=== PATIENT | female | born 1945 | race Caucasian/White ===

== ENCOUNTER 2020-02-04 08:14 | Day surgery (SDC) | payer MEDICARE, OTHER ==
[~2020-02-04 08:14] MED LIST: Acetaminophen 325 MG Tab PO SCH; Acetaminophen/oxyCODONE 325-5 MG Tab PO PRN; Bisacodyl 5 MG Tab PO PRN; Lactated Ringers 1,000 ML IV SCH; Lidocaine 1%/Sod Bicarbonate in NS 8.4% 1 ML Syringe IDERM PRN; Magnesium Hydroxide 400 MG/5 ML Susp 30 ML Cup PO PRN; Morphine 2 MG/ML SYRINGE IVPUSH PRN; Naloxone 0.4 MG/ML SDV IVPUSH PRN; Ondansetron 4 MG/2 ML SDV IVPUSH PRN; Pregabalin 25 MG Cap PO SCH; Sennosides 8.6 MG Tab PO PRN; Sodium Chloride 0.9% 10 ML Syringe FLUSH PRN; oxyCODONE ER 10 MG TAB.ER PO SCH
--- NOTE | 2020-02-04 08:38 | PCM.PREANE ---
Preanesthetic Assessment - Anesthesia/Transfusion/Family Hx Anesthesia History: Prior Anesthesia Without Reaction Family History of Anesthesia Reaction: No Transfusion History: No Prior Transfusion(s) - Review of Systems General: No Symptoms Pulmonary: No Symptoms Cardiovascular: No Symptoms Gastrointestinal: No Symptoms Neurological: No Symptoms Other: Reports: None - Physical Assessment NPO Status Date: 02/03/20 NPO Status Time: 23:50 ASA Class: 2 Mental Status: Alert & Oriented x3 Dentition: Reports: Normal Dentition Thyro-Mental Finger Breadths: 3 Mouth Opening Finger Breadths: 3 ROM/Head Extension: Full Lungs: Clear to Auscultation, Normal Respiratory Effort Cardiovascular: Regular Rate, Regular Rhythm - Lab Values: Laboratory Last Values MRSA (PCR) Negative 01/22/20 16:12 - Allergies Allergies/Adverse Reactions: Allergies Allergy/AdvReac Type Severity Reaction Status Date / Time cephalexin monohydrate Allergy Rash Verified 02/01/20 14:01 [From Keflex] Penicillins Allergy Rash Verified 02/01/20 14:01 Sulfa (Sulfonamide Allergy Rash Verified 02/01/20 14:01 Antibiotics) - Acknowledgements Anesthesia Type Planned: Spinal Pt an Appropriate Candidate for the Planned Anesthesia: Yes Alternatives and Risks of Anesthesia Discussed w Pt/Guardian: Yes Pt/Guardian Understands and Agrees with Anesthesia Plan: Yes PreAnesthesia Questionnaire Cardiovascular History: Reports: High Cholesterol Respiratory History: Reports: SOB (with exertion) Other Respiratory History: Severe Snoring without apnea Gastrointestinal History: Reports: GERD, Hemorrhoids, Other (See Below) Other Gastrointestinal History: dysphagia, RUQ pain, abnormal LFTs, gastric bypass Genitourinary History: Reports: None FAMILY EDUCATOR History: Reports: None Musculoskeletal History: Reports: Osteoarthritis, Other (See Below) Other Musculoskeletal History: calcaneal spur, back pain, ganglion cyst Neurological History: Reports: Other (See Below) Other Neuro History: numbness and tingling Psychiatric History: Reports: Other (See Below) Other Psychiatric History: sleep disturbance Endocrine/Metabolic History: Reports: Hypothyroidism, Obesity/BMI 30+ Hematologic History: Reports: None Immunologic History: Reports: None Oncologic (Cancer) History: Reports: None Dermatologic History: Reports: Other (See Below) Other Dermatologic History: right scalp sebaceous cyst - Past Surgical History Head Surgeries/Procedures: Reports: None HEENT Surgical History: Reports: Adenoidectomy, Tonsillectomy Cardiovascular Surgical History: Reports: None Respiratory Surgical History: Reports: None GI Surgical History: Reports: Bariatric Procedure, Colonoscopy, EGD Female Surgical History: Reports: Tubal Ligation Male Surgical History: Reports: None Endocrine Surgical History: Reports: Thyroidectomy Neurological Surgical History: Reports: None Musculoskeletal Surgical History: Reports: None Oncologic Surgical History: Reports: None - SUBSTANCE USE Smoking Status *Q: Never Smoker Recreational Drug Use History: No - HOME MEDS Home Medications: Home Meds Levothyroxine Sodium [Synthroid] 75 mcg PO DAILY 11/26/14 [History] Multivitamin [Multi-Vitamin Daily] 1 tab PO DAILY 11/26/14 [History] Pantoprazole Sodium 40 mg PO DAILY 11/26/14 [History] Betamethasone/Clotrimazole [Lotrisone] 1 dose TOP BID PRN 02/01/20 [History] Cholecalciferol (Vitamin D3) [Vitamin D3] 5,000 unit PO DAILY 02/01/20 [History] Glucosam/Chondr/Collagn/Hyalur [Glucosamine & Chondroitin Cap] 1 tab PO BID 02/01/20 [History] Rosuvastatin Calcium 5 mg PO DAILY 02/01/20 [History] - CURRENT (IN HOUSE) MEDS Current Meds: Current Medications Acetaminophen (Tylenol) 975 mg PO ONETIME DEAND[facility] Stop: 02/04/20 12:00 Last Admin: 02/04/20 08:27 Dose: 975 mg Documented by: Bisacodyl (Dulcolax) 5 mg PO DAILY PRN PRN Reason: Constipation Morphine Sulfate 8 mg/Epinephrine HCl 0.3 mg/Cefuroxime Sodium 750 mg/Ketorolac Tromethamine 30 mg/Sodium Chloride 7.9 ml 0 mg .XX ASDIRECTED PRN PRN Reason: Pain Cyclobenzaprine HCl (Flexeril) 10 mg PO TID PRN PRN Reason: Spasms Docusate Sodium (Colace) 100 mg PO BID [facility] Famotidine (Pepcid) 20 mg PO Q12H [facility] Lactated Ringer's (Ringers, Lactated) 1,000 mls @ 125 mls/hr IV ASDIRECTED DEANDRE Stop: 02/04/20 23:00 Cefazolin Sodium/Dextrose 2 gm (/ Premix) 50 mls @ 100 mls/hr IV Q8H [facility] Stop: 02/04/20 22:59 Ketorolac Tromethamine (Toradol) 15 mg IVPUSH Q6H PRN PRN Reason: Pain Lidocaine/Sodium Bicarbonate (Buffered Lidocaine 1% In Ns 8.4%) 0.25 ml IDERM ONETIME PRN PRN Reason: Prior to IV Start Stop: 02/04/20 18:00 Magnesium Hydroxide (Milk Of Magnesia) 30 ml PO BID PRN PRN Reason: Constipation Morphine Sulfate (Morphine) 2 mg IVPUSH Q2H PRN PRN Reason: Breakthrough Pain Naloxone HCl (Narcan) 0.1 mg IVPUSH Q5M PRN PRN Reason: Oversedation Ondansetron HCl (Zofran) 4 mg IVPUSH Q6H PRN PRN Reason: Nausea/Vomiting Oxycodone HCl (Oxycontin) 10 mg PO ONETIME [facility] Stop: 02/04/20 12:00 Oxycodone/Acetaminophen (Percocet 325-5 Mg) 1 - 2 tab PO Q4H PRN PRN Reason: Pain Pregabalin (Lyrica) 50 mg PO ONETIME [facility] Stop: 02/04/20 12:00 Last Admin: 02/04/20 08:27 Dose: 50 mg Documented by: Rivaroxaban (Xarelto) 10 mg PO DAILY [facility] Senna (Senna) 8.6 mg PO BID PRN PRN Reason: Constipation Sodium Chloride (Saline Flush) 10 ml FLUSH ASDIRECTED PRN PRN Reason: Keep Vein Open Stop: 02/04/20 18:00
[2020-02-04] MEDS ORDERED: Lidocaine 1% 4 ML ONE (09:02)
[2020-02-04] MEDS ORDERED: ceFAZolin 1 GM Vial ONE ×2 (09:03→09:52)
[2020-02-04] MEDS ORDERED: Propofol 200 MG/20 ML SDV ONE ×2 (09:03→11:38)
[2020-02-04] MEDS ORDERED: Midazolam 1 MG/ML 2 ML SDV ONE (09:03)
[2020-02-04] MEDS ORDERED: fentaNYL 100 MCG/2 ML SDV ONE (09:04)
[2020-02-04] MEDS ORDERED: Iodine/Sodium Iodide 2% Tincture 30 ML Bottle ONE (09:51)
[2020-02-04] MEDS ORDERED: Bupivacaine 0.25% 10 ML SDV ONE (09:52)
[2020-02-04] MEDS: Vancomycin 1 GM SDV ONE ×3 (11:25→11:53)
[2020-02-04] MEDS ORDERED: Ondansetron 4 MG/2 ML SDV IVPUSH PRN (11:45)
[2020-02-04] MEDS ORDERED: fentaNYL 100 MCG/2 ML SDV IVPUSH PRN (11:45)
[2020-02-04] MEDS: Morphine 8 MG, EPINEPHrine 0.3 MG, Cefuroxime 750 MG, Ketorolac 30 MG, Sodium Chloride ... PRN ×10 (11:52→11:54)
[2020-02-04] MEDS ORDERED: Ondansetron 4 MG/2 ML SDV ONE (12:19)
[2020-02-04] MEDS ORDERED: Ketorolac 30 MG/ML SDV ONE (12:19)
[2020-02-04] MEDS ORDERED: EPINEPHrine 1 MG/ML SDV ONE (12:23)
[2020-02-04] MEDS ORDERED: Ropivacaine 0.5% 5 MG/ML 30 ML SDV ONE (12:23)
--- NOTE | 2020-02-04 12:32 | PCM.POSTAN ---
POST ANESTHESIA ASSESSMENT - MENTAL STATUS Mental Status: Alert, Oriented - VITAL SIGNS Vital Signs: Last Vital Signs Temp 36.1 C 02/04/20 12:26 Pulse 77 02/04/20 12:26 Resp 14 02/04/20 12:26 BP 100/55 L 02/04/20 12:26 Pulse Ox 95 02/04/20 12:26 - RESPIRATORY Respiratory Status: Respiratory Rate WNL, Airway Patent, O2 Saturation Stable - CARDIOVASCULAR CV Status: Pulse Rate WNL, Blood Pressure Stable - GASTROINTESTINAL GI Status: No Symptoms - POST OP HYDRATION Hydration Status: Adequate & Stable
--- NOTE | 2020-02-04 12:51 | PCM.SN.2 ---
- Free Text/Narrative Note: Left selective femoral nerve block at the adductor canal for post-procedure pain control under US guidance requested by Dr. Nunn. Date: 02/04/2020 Time Out: 1232 Start: 1232 End: 1240 Chart reviewed. Consent signed. Questions answered. Appropriate monitors applied. Time out performed. Left mid-shaft femur identified with ultrasound, scanning medially of femur, the femoral artery in the adductor canal visualized, and the femoral nerve located laterally to the artery. The skin was prepped lateral to the ultrasound probe with chlorahexadine times two. The 21ga 4 insulated block needle was inserted under direct ultrasound guidance into the adductor canal. 25mL of 0.5% ropivacaine with 1:200,000 epinephrine was injected circumferentially around the nerve with intermittent negative aspiration noted. Patient tolerated the procedure well. Sterile technique noted along with sterile gloves, mask, and sterile probe cover. See picture on progress note and vital signs on nurses notes. Block completed in PACU. Mio Soliz CRNA
--- NOTE | 2020-02-04 13:00 | PCM48HPAN ---
Post Anesthesia Note - EVALUATION WITHIN 48HRS OF ANESTHETIC Vital Signs in Normal Range: Yes Patient Participated in Evaluation: Yes Respiratory Function Stable: Yes Airway Patent: Yes Cardiovascular Function Stable: Yes Hydration Status Stable: Yes Pain Control Satisfactory: Yes Nausea and Vomiting Control Satisfactory: Yes Mental Status Recovered: Yes Vital Signs: Last Vital Signs Temp 36.1 C 02/04/20 12:26 Pulse 74 02/04/20 12:41 Resp 15 02/04/20 12:41 BP 102/59 L 02/04/20 12:41 Pulse Ox 98 02/04/20 12:41
--- NOTE | 2020-02-04 13:26 | CR ---
Left knee: AP and crosstable lateral views of the left knee were obtained. Comparison: No prior knee exam. Prosthesis is seen within the left knee. Soft tissue air is noted from the surgical procedure. Underlying bony structures are intact. Impression: 1. Satisfactory radiographic appearance of recently placed left knee prosthesis. Diagnostic code #2 This report was dictated in MDT
[2020-02-04] MEDS ORDERED: BETAMETHASONE TOP PRN (14:53)
[2020-02-04] MEDS ORDERED: CLOTRIMAZOLE TOP PRN (14:53)
[2020-02-04] MEDS ORDERED: Cyclobenzaprine 10 MG Tab PO PRN (15:00)
[2020-02-04] MEDS: Ketorolac 15 MG/ML SDV IVPUSH PRN (17:01)
[2020-02-04] MEDS: ceFAZolin 2 GM in Premix Bag 1 BAG IV SCH (17:04)
[2020-02-04] MEDS: Docusate Sodium 100 MG Cap PO SCH (21:25)
[2020-02-04] MEDS: Famotidine 20 MG Tab PO SCH (21:25)
[2020-02-05] MEDS: Ketorolac 15 MG/ML SDV IVPUSH PRN ×2 (01:16→07:42)
[2020-02-05] MEDS: ceFAZolin 2 GM in Premix Bag 1 BAG IV SCH ×2 (01:17→09:10)
[2020-02-05] MEDS ORDERED: Levothyroxine 75 MCG Tab PO SCH (06:00)
[2020-02-05] MEDS ORDERED: Pantoprazole 40 MG Tab.CR PO SCH ×2 (06:00→07:00)
[2020-02-05] MEDS ORDERED: oxyCODONE 5 MG Tab PO PRN (08:05)
--- NOTE | 2020-02-05 08:16 | PCM.SURGPN ---
- General Info Date of Service: 02/05/20 POD#: 1 Functional Status: Reports: Pain Controlled, Tolerating Diet, Ambulating, Urinating, Incentive Spirometry, Other (The pt states she is able to get into and out of bed independently.) - Patient Data Vitals - Most Recent: Last Vital Signs Temp 98.1 F 02/05/20 04:42 Pulse 71 02/05/20 04:42 Resp 16 02/05/20 04:42 BP 99/71 02/05/20 04:42 Pulse Ox 93 L 02/05/20 04:42 Weight - Most Recent: 222 lb I&O - Last 24 Hours: Intake & Output 02/04/20 02/05/20 02/05/20 22:59 06:59 14:59 Intake Total 340 Balance 340 Lab Results Last 24 Hrs: Laboratory Results - last 24 hr 02/05/20 02/05/20 Range/Units 04:30 04:30 WBC 6.28 (3.98-10.04) K/mm3 RBC 4.36 (3.98-5.22) M/mm3 Hgb 12.7 (11.2-15.7) gm/dl Hct 40.2 (34.1-44.9) % MCV 92.2 (79.4-94.8) fl MCH 29.1 (25.6-32.2) pg MCHC 31.6 L (32.2-35.5) g/dl RDW Std Deviation 47.2 H (36.4-46.3) fL Plt Count 213 (182-369) K/mm3 MPV 10.2 (9.4-12.3) fl Sodium 139 (136-145) mEq/L Potassium 3.7 (3.5-5.1) mEq/L Chloride 104 (98-107) mEq/L Carbon Dioxide 27 (21-32) mEq/L Anion Gap 11.7 (5-15) BUN 12 (7-18) mg/dL Creatinine 0.7 (0.55-1.02) mg/dL Est Cr Clr Drug Dosing 68.01 mL/min Estimated GFR (MDRD) > 60 (>60) mL/min BUN/Creatinine Ratio 17.1 (14-18) Glucose 79 L (83-115) mg/dL Calcium 8.4 L (8.5-10.1) mg/dL Total Bilirubin 0.4 (0.2-1.0) mg/dL AST 72 H (15-37) U/L ALT 68 H (14-59) U/L Alkaline Phosphatase 88 (46-116) U/L Total Protein 5.9 L (6.4-8.2) g/dl Albumin 3.0 L (3.4-5.0) g/dl Globulin 2.9 gm/dL Albumin/Globulin Ratio 1.0 (1-2) Med Orders - Current: Current Medications Bisacodyl (Dulcolax) 5 mg PO DAILY PRN PRN Reason: Constipation Cholecalciferol (Vitamin D3) 5,000 unit PO DAILY [facility] Cyclobenzaprine HCl (Flexeril) 10 mg PO TID PRN PRN Reason: Spasms Docusate Sodium (Colace) 100 mg PO BID [facility] Last Admin: 02/04/20 21:25 Dose: 100 mg Documented by: Famotidine (Pepcid) 20 mg PO Q12H [facility] Last Admin: 02/04/20 21:25 Dose: 20 mg Documented by: Cefazolin Sodium/Dextrose 2 gm (/ Premix) 50 mls @ 100 mls/hr IV Q8H [facility] Stop: 02/05/20 09:59 Last Admin: 02/05/20 01:17 Dose: 100 mls/hr Documented by: Levothyroxine Sodium (Levothyroxine) 75 mcg PO ACBREAKFAST [facility] Last Admin: 02/05/20 05:30 Dose: 75 mcg Documented by: Magnesium Hydroxide (Milk Of Magnesia) 30 ml PO BID PRN PRN Reason: Constipation Morphine Sulfate (Morphine) 2 mg IVPUSH Q2H PRN PRN Reason: Breakthrough Pain Multivitamins (Thera) 1 each PO DAILY [facility] Naloxone HCl (Narcan) 0.1 mg IVPUSH Q5M PRN PRN Reason: Oversedation Ondansetron HCl (Zofran) 4 mg IVPUSH Q6H PRN PRN Reason: Nausea/Vomiting Oxycodone HCl (Oxycodone) 5 - 10 mg PO Q4H PRN PRN Reason: Pain Pantoprazole Sodium (Protonix) 40 mg PO DAILY@0600 [facility] Last Admin: 02/05/20 05:30 Dose: 40 mg Documented by: Betamethasone/Clotrimazole [ Lotrisone] Topical 0 each TOP BID PRN PRN Reason: skin complications Rivaroxaban (Xarelto) 10 mg PO DAILY [facility] Rosuvastatin Calcium (Crestor) 5 mg PO DAILY [facility] Senna (Senna) 8.6 mg PO BID PRN PRN Reason: Constipation Discontinued Medications Acetaminophen (Tylenol) 975 mg PO ONETIME [facility] Stop: 02/04/20 12:00 Last Admin: 02/04/20 08:27 Dose: 975 mg Documented by: Bupivacaine HCl (Sensorcaine-Mpf 0.25%) Confirm Administered Dose 30 ml .ROUTE .STK-MED ONE Stop: 02/04/20 09:53 Cefazolin Sodium (Ancef) Confirm Administered Dose 2 gm .ROUTE .STK-MED ONE Stop: 02/04/20 09:04 Cefazolin Sodium (Ancef) Confirm Administered Dose 2 gm .ROUTE .STK-MED ONE Stop: 02/04/20 09:53 Last Admin: 02/04/20 11:50 Dose: 2 gm Documented by: Morphine Sulfate 8 mg/Epinephrine HCl 0.3 mg/Cefuroxime Sodium 750 mg/Ketorolac Tromethamine 30 mg/Sodium Chloride 7.9 ml 0 mg .XX ASDIRECTED PRN PRN Reason: Pain Last Admin: 02/04/20 11:54 Dose: 788.3 mg Documented by: Epinephrine HCl (Adrenalin) Confirm Administered Dose 1 mg .ROUTE .STK-MED ONE Stop: 02/04/20 12:24 Fentanyl (Sublimaze) Confirm Administered Dose 100 mcg .ROUTE .STK-MED ONE Stop: 02/04/20 09:05 Fentanyl (Sublimaze) 50 mcg IVPUSH Q5M PRN PRN Reason: Pain Stop: 02/04/20 18:00 Lactated Ringer's (Ringers, Lactated) 1,000 mls @ 125 mls/hr IV ASDIRECTED [facility] Stop: 02/04/20 23:00 Last Admin: 02/04/20 08:50 Dose: 125 mls/hr Documented by: Lidocaine HCl (Xylocaine-Mpf 1%) Confirm Administered Dose 4 mls @ as directed .ROUTE .STK-MED ONE Stop: 02/04/20 09:03 Iodine (Iodine 2% Mild Tincture) Confirm Administered Dose 30 ml .ROUTE .STK-MED ONE Stop: 02/04/20 09:52 Last Admin: 02/04/20 11:48 Dose: 18 ml Documented by: Ketorolac Tromethamine (Toradol) 15 mg IVPUSH Q6H PRN PRN Reason: Pain Last Admin: 02/05/20 07:42 Dose: 15 mg Documented by: Ketorolac Tromethamine (Toradol) Confirm Administered Dose 30 mg .ROUTE .STK-MED ONE Stop: 02/04/20 12:20 Lidocaine/Sodium Bicarbonate (Buffered Lidocaine 1% In Ns 8.4%) 0.25 ml IDERM ONETIME PRN PRN Reason: Prior to IV Start Stop: 02/04/20 18:00 Last Admin: 02/04/20 08:49 Dose: 0.25 ml Documented by: Midazolam HCl (Versed 1 Mg/Ml) Confirm Administered Dose 2 mg .ROUTE .STK-MED ONE Stop: 02/04/20 09:04 Ondansetron HCl (Zofran) 4 mg IVPUSH ONETIME PRN PRN Reason: Nausea/Vomiting Stop: 02/04/20 18:00 Ondansetron HCl (Zofran) Confirm Administered Dose 4 mg .ROUTE .STK-MED ONE Stop: 02/04/20 12:20 Oxycodone HCl (Oxycontin) 10 mg PO ONETIME [facility] Stop: 02/04/20 12:00 Last Admin: 02/04/20 08:27 Dose: 10 mg Documented by: Oxycodone/Acetaminophen (Percocet 325-5 Mg) 1 - 2 tab PO Q4H PRN PRN Reason: Pain Pantoprazole Sodium (Protonix) 40 mg PO DAILY@0700 [facility] Pregabalin (Lyrica) 50 mg PO ONETIME [facility] Stop: 02/04/20 12:00 Last Admin: 02/04/20 08:27 Dose: 50 mg Documented by: Propofol (Diprivan 20 Ml) Confirm Administered Dose 200 mg .ROUTE .STK-MED ONE Stop: 02/04/20 09:04 Propofol (Diprivan 20 Ml) Confirm Administered Dose 200 mg .ROUTE .STK-MED ONE Stop: 02/04/20 11:39 Ropivacaine (Naropin 0.5%) Confirm Administered Dose 30 ml .ROUTE .STK-MED ONE Stop: 02/04/20 12:24 Sodium Chloride (Saline Flush) 10 ml FLUSH ASDIRECTED PRN PRN Reason: Keep Vein Open Stop: 02/04/20 18:00 Tranexamic Acid (Cyklokapron) Confirm Administered Dose 1,000 mg .ROUTE .STK-MED ONE Stop: 02/04/20 09:52 Last Admin: 02/04/20 12:04 Dose: 1,000 mg Documented by: Vancomycin HCl (Vancomycin) Confirm Administered Dose 1 gm .ROUTE .STK-MED ONE Stop: 02/04/20 09:52 Last Admin: 02/04/20 11:25 Dose: 1 gm Documented by: - Exam Wound/Incisions: Dressing Dry and Intact General: Alert, Cooperative, No Acute Distress Lungs: Normal Respiratory Effort Extremities: Other (NVS intact for LLE. Lidia's negative. ) Sepsis Event Note - Evaluation Sepsis Screening Result: No Definite Risk - Focused Exam Vital Signs: Vital Signs Temp Pulse Resp BP Pulse Ox 02/05/20 04:42 98.1 F 71 16 99/71 93 L 02/05/20 01:19 97.2 F 58 L 16 104/68 89 L 02/04/20 21:25 72 96 02/04/20 20:33 96.4 F L 70 17 118/59 L 99 - Problem List Review Problem List Initiated/Reviewed/Updated: Yes - My Orders Last 24 Hours: Active Orders 24 hr Category Date Time Status Communication Order [RC] ASDIRECTED Care 02/04/20 11:45 Active Notify Provider [RC] ASDIRECTED Care 02/04/20 11:45 Active Ready for Discharge [RC] PER UNIT ROUTINE Care 02/05/20 08:13 Ordered Vital Signs [RC] Q4HR Care 02/04/20 11:45 Active Regular Diet [DIET] Diet 02/04/20 Lunch Active Cholecalciferol (Vitamin D3) [Vitamin D3] Med 02/05/20 09:00 Active 5,000 unit PO DAILY Cyclobenzaprine [Flexeril] Med 02/04/20 15:00 Active 10 mg PO TID PRN Docusate Sodium [Colace] Med 02/04/20 21:00 Active 100 mg PO BID Famotidine [Pepcid] Med 02/04/20 21:00 Active 20 mg PO Q12H Levothyroxine Med 02/05/20 06:00 Active 75 mcg PO ACBREAKFAST Multivitamins,Therapeutic [Thera] Med 02/05/20 09:00 Active 1 each PO DAILY Pantoprazole [ProTONIX] Med 02/05/20 06:00 Active 40 mg PO DAILY@0600 Patient's Own Medication [Ptom] Med 02/04/20 14:53 Active 0 each TOP BID PRN Rivaroxaban [Xarelto] Med 02/05/20 09:00 Active 10 mg PO DAILY Rosuvastatin [Crestor] Med 02/05/20 09:00 Active 5 mg PO DAILY ceFAZolin [Ancef] 2 gm Med 02/04/20 17:30 Active Premix Bag 1 bag IV Q8H oxyCODONE Med 02/05/20 08:05 Active 5 - 10 mg PO Q4H PRN Medication Orders Bisacodyl (Dulcolax) 5 mg PO DAILY PRN PRN Reason: Constipation Cholecalciferol (Vitamin D3) 5,000 unit PO DAILY [facility] Cyclobenzaprine HCl (Flexeril) 10 mg PO TID PRN PRN Reason: Spasms Docusate Sodium (Colace) 100 mg PO BID [facility] Last Admin: 02/04/20 21:25 Dose: 100 mg Documented by: ESTHER Famotidine (Pepcid) 20 mg PO Q12H [facility] Last Admin: 02/04/20 21:25 Dose: 20 mg Documented by: ESTHER Cefazolin Sodium/Dextrose 2 gm (/ Premix) 50 mls @ 100 mls/hr IV Q8H [facility] Stop: 02/05/20 09:59 Last Admin: 02/05/20 01:17 Dose: 100 mls/hr Documented by: Infusion: 02/04/20 17:34 Dose: 100 mls/hr Documented by: Admin: 02/04/20 17:04 Dose: 100 mls/hr Documented by: NELSON Levothyroxine Sodium (Levothyroxine) 75 mcg PO ACBREAKFAST [facility] Last Admin: 02/05/20 05:30 Dose: 75 mcg Documented by: ESTHER Magnesium Hydroxide (Milk Of Magnesia) 30 ml PO BID PRN PRN Reason: Constipation Morphine Sulfate (Morphine) 2 mg IVPUSH Q2H PRN PRN Reason: Breakthrough Pain Multivitamins (Thera) 1 each PO DAILY [facility] Naloxone HCl (Narcan) 0.1 mg IVPUSH Q5M PRN PRN Reason: Oversedation Ondansetron HCl (Zofran) 4 mg IVPUSH Q6H PRN PRN Reason: Nausea/Vomiting Oxycodone HCl (Oxycodone) 5 - 10 mg PO Q4H PRN PRN Reason: Pain Pantoprazole Sodium (Protonix) 40 mg PO DAILY@0600 [facility] Last Admin: 02/05/20 05:30 Dose: 40 mg Documented by: ESTHER Betamethasone/Clotrimazole [ Lotrisone] Topical 0 each TOP BID PRN PRN Reason: skin complications Rivaroxaban (Xarelto) 10 mg PO DAILY [facility] Rosuvastatin Calcium (Crestor) 5 mg PO DAILY [facility] Senna (Senna) 8.6 mg PO BID PRN PRN Reason: Constipation - Assessment Assessment (Free Text/Narrative):: POD#1 - left TKA - Plan Plan (Free Text/Narrative):: 1. D/C Percocet and initiate oxycodone due to elevated LFTs noted today. The pt is aware of this change. 2. Xarelto 10mg PO daily due to hx lap band. ASA use could increase the risk of marginal ulcers. The pt is aware of this. 3. Discharge to home today. 4. Outpatient therapy. 5. Hgb 12.7. The pt's case was discussed with Dr. Nunn.
[2020-02-05 08:21] VITALS: BP 107/60; PULSE 77
--- NOTE | 2020-02-05 08:37 | PCM48HPAN ---
Post Anesthesia Note - EVALUATION WITHIN 48HRS OF ANESTHETIC Vital Signs in Normal Range: Yes Patient Participated in Evaluation: Yes Respiratory Function Stable: Yes Airway Patent: Yes Cardiovascular Function Stable: Yes Hydration Status Stable: Yes Pain Control Satisfactory: Yes Nausea and Vomiting Control Satisfactory: Yes Mental Status Recovered: Yes Vital Signs: Last Vital Signs Temp 36.7 C 02/05/20 04:42 Pulse 77 02/05/20 07:58 Resp 14 02/05/20 07:58 BP 107/60 02/05/20 07:58 Pulse Ox 95 02/05/20 07:58
[2020-02-05] MEDS ORDERED: Cholecalciferol (Vitamin D3) 5,000 UNIT Tab PO SCH (09:00)
[2020-02-05] MEDS ORDERED: Rivaroxaban 10 MG Tab PO SCH (09:00)
[2020-02-05] MEDS ORDERED: Rosuvastatin 10 MG Tab PO SCH (09:00)
[2020-02-05] MEDS ORDERED: Multivitamins,Therapeutic Tab PO SCH (09:00)
[2020-02-05] MEDS: Docusate Sodium 100 MG Cap PO SCH (09:05)
[2020-02-05] MEDS: Famotidine 20 MG Tab PO SCH (09:06)
--- NOTE | 2020-02-05 16:07 | PCM.OPNOTE ---
- General Post-Op/Procedure Note Date of Surgery/Procedure: 02/04/20 Operative Procedure(s): left total knee arthroplasty Pre Op Diagnosis: left knee osteoarthrosis Post-Op Diagnosis: Same Anesthesia Technique: Local, MAC, Spinal Primary Surgeon: Aidan Nunn Anesthesia Provider: Jelly Segura Batch Tester: Tarsha Lou Batch Tester: Gabrielle German EBTunde in mLs: 5 Complications: None Condition: Good Free Text/Narrative:: Intake & Output 02/05/20 02/05/20 02/05/20 06:59 14:59 22:59 Intake Total 240 Balance 240 4/4 32x10 11mm
--- NOTE | 2020-02-05 16:53 | OR ---
DATE OF OPERATION: 02/04/2020 SURGEON: Aidan Nunn MD OPERATION PERFORMED: Left total knee arthroplasty. PREOPERATIVE DIAGNOSIS: Left knee osteoarthrosis. POSTOPERATIVE DIAGNOSIS: Left knee osteoarthrosis. ANESTHESIA: Local MAC with spinal. ANESTHESIA PROVIDER: Jelly Segura CRNA ASSISTANTS: Tarsha Lou PA-C; and Gabrielle German LPN. ESTIMATED BLOOD LOSS: 5 mL. COMPLICATIONS: None. CONDITION: Stable. IMPLANTS: 1. [place] size 4 cemented PS femur. 2. Linda size 4 cemented [place] tibial baseplate. 3. Linda size 4, 11 mm PS X3 polyethylene insert. 4. Linda size 32 x 10 mm cemented asymmetric patella. DESCRIPTION OF PROCEDURE: The patient was identified in the preop holding area. Proper site was marked and identified by the surgeon. The patient was taken back to the operating theater. After adequate anesthesia, the patient's left lower extremity had a nonsterile tourniquet applied and it was sterilely prepped and draped in the usual sterile fashion. OR time-out was performed. The patient received 2 g IV Ancef. At this time, the left lower extremity was exsanguinated. Tourniquet was insufflated to 300 mmHg. Standard medial parapatellar incision was made. Medial parapatellar arthrotomy was created. Deep fibers of the MCL were raised and anterior fat pad was resected. At this time, attention was turned to the patella. Patella measured 24, it was resected to a 14 for 32 x 10 mm patella. Drill holes were then drilled and found to be in adequate position. The drill was then drilled in the distal femur and the intramedullary distal femoral cutting guide was then placed. 10 mm was resected off the distal femur and was found to be an adequate resection. Sizing guide was placed. It was found to be a [place] size 4 cemented PS femur that was shown on the implant record at the beginning of this dictation. The drill holes were drilled for the epicondylar axis using [place] line and epicondyles as reference. At this time, the 4-in- 1 cutting block was placed. An anterior posterior and anterior and posterior chamfer cuts were then completed. Attention was turned to the tibia. The posterior medial lateral retractors were placed. The extramedullary tibial guide was placed. It was placed in the old footprint of the ACL. It was aligned with the center of the ankle and 0 degrees of slope, 9 mm was then resected off the unaffected side. There was found to be an acceptable reduction. At this time, posterior osteophytes were removed along with medial and lateral meniscus. A trial implant was placed with a correct sized tibia that was mentioned at the beginning of the dictation. A [place] size 4, 11 mm PS X3 polyethylene insert was then placed. The patient's knee was brought through range of motion. The patella was tracking centrally and was stable to varus and valgus stress. Alignment was found to be roughly at 0 degrees. The tibia was stamped and drilled in proper rotation. The universal tibial base plate was impacted in place. Next, the [place] size 4 cemented PS femur impacted into place and the Linda size 4, 11 mm PS X3 polyethylene insert was placed. The patient's knee was brought into full extension. The patella was then press-fit in place at this time. Tourniquet was deflated. One liter dilute Betadine solution was irrigated through the knee along with 3 L of pulse lavage irrigation with Ancef. Periarticular injection was then completed. The patient's knee was brought through a range of motion. Once the cement had time to set up and it was found to be stable to varus valgus stress, the patella was tracking centrally with full range of motion. At this time, a #2 barbed suture was used for closure of the medial parapatellar arthrotomy. Topical tranexamic acid was placed. 2-0 Vicryl was used subcutaneously, Prineo was used for the skin. The patient tolerated the procedure well and was sent to the PACU in stable condition. MMZOILA /[id number]
== END 2020-02-05 10:40 | disposition home or self-care (01) ==
LOC: JD.SDS 08:14 → JD.OB 08:23 → JD.SDS 02-05 10:40
PROVIDERS: ATTEND Orthopaedic Surgery
DX: M17.12 Unilateral primary osteoarthritis, left knee (principal); M25.762 Osteophyte, left knee; E03.9 Hypothyroidism, unspecified; K21.9 Gastro-esophageal reflux disease without esophagitis; E66.09 Other obesity due to excess calories; E78.2 Mixed hyperlipidemia; Z88.0 Allergy status to penicillin; Z88.1 Allergy status to other antibiotic agents; Z88.2 Allergy status to sulfonamides; Z79.899 Other long term (current) drug therapy; Z68.36 Body mass index [BMI] 36.0-36.9, adult
CPT/HCPCS: 27447; 36415; 73560; 80053; 85027; 87641; 97110; 97116; 97162; 97165; 97530; 97535; A9270; C1713; C1776; J0171; J0690; J0697; J1885; J2001; J2250; J2270; J2405; J2704; J2795; J3010; J3370; J3490; J7120; 01402; 64450

== ENCOUNTER 2020-02-06 06:10 | Emergency (ER) | payer MEDICARE, OTHER ==
[2020-02-06 06:19] VITALS: BP 127/71
[2020-02-06] MEDS ORDERED: Sodium Chloride 0.9% 10 ML Syringe FLUSH PRN (06:30)
[2020-02-06] MEDS ORDERED: Sodium Chloride 0.9% 1,000 ML IV SCH (06:30)
--- NOTE | 2020-02-06 06:41 | EDM.PDOC ---
ED HPI GENERAL MEDICAL PROBLEM - General Chief Complaint: Syncope Stated Complaint: [facility] Time Seen by Provider: 02/06/20 06:26 Source of Information: Reports: Patient, EMS, RN Notes Reviewed - History of Present Illness INITIAL COMMENTS - FREE TEXT/NARRATIVE: 74 yr old female had a syncopal episode last evening and than again this AM about 90 minutes ago. She had a L knee replacement 2 days ago, went home yesterday. She states the surgery "went well". She states she has hx of "fainting spells". No chest pain, cough, fever or difficulty breathing. She took her last pain pill and muscle relaxant med late yesterday afternoon. She has not taken more, states she "does not like how they make her feel" Moderate L knee pain at this time but tolerable. Both fainting episodes occured either going to or leaving bathroom. Left Lower Leg Pain Score (Numeric/FACES): 5 - Related Data Allergies Allergy/AdvReac Type Severity Reaction Status Date / Time cephalexin monohydrate Allergy Rash Verified 02/06/20 06:19 [From Keflex] Penicillins Allergy Rash Verified 02/06/20 06:19 Sulfa (Sulfonamide Allergy Rash Verified 02/06/20 06:19 Antibiotics) Home Meds: Home Meds Levothyroxine Sodium [Synthroid] 75 mcg PO DAILY 11/26/14 [History] Multivitamin [Multi-Vitamin Daily] 1 tab PO DAILY 11/26/14 [History] Pantoprazole Sodium 40 mg PO DAILY 11/26/14 [History] Betamethasone/Clotrimazole [Lotrisone] 1 dose TOP BID PRN 02/01/20 [History] Cholecalciferol (Vitamin D3) [Vitamin D3] 5,000 unit PO DAILY 02/01/20 [History] Glucosam/Chondr/Collagn/Hyalur [Glucosamine & Chondroitin Cap] 1 tab PO BID 02/01/20 [History] Rosuvastatin Calcium 5 mg PO DAILY 02/01/20 [History] Cyclobenzaprine [Flexeril] 5 mg PO BID PRN #20 tablet 02/05/20 [Rx] Docusate Sodium [Colace] 100 mg PO BID cap 02/05/20 [Rx] Magnesium Hydroxide [Milk of Magnesia] 30 ml PO BID PRN cup 02/05/20 [Rx] Rivaroxaban [Xarelto] 10 mg PO DAILY #30 tablet 02/05/20 [Rx] Sennosides [Senna] 8.6 mg PO BID PRN tablet 02/05/20 [Rx] bisacodyL [Dulcolax] 5 mg PO DAILY PRN tablet 02/05/20 [Rx] oxyCODONE 5 - 10 mg PO Q4H PRN #60 tablet 02/05/20 [Rx] Past Medical History Cardiovascular History: Reports: High Cholesterol Respiratory History: Reports: SOB Other Respiratory History: Severe Snoring without apnea Gastrointestinal History: Reports: GERD, Hemorrhoids, Other (See Below) Other Gastrointestinal History: dysphagia, RUQ pain, abnormal LFTs, gastric bypass Genitourinary History: Reports: None PESTICIDE CHEMIST History: Reports: None Musculoskeletal History: Reports: Osteoarthritis, Other (See Below) Other Musculoskeletal History: calcaneal spur, back pain, ganglion cyst Neurological History: Reports: Other (See Below) Other Neuro History: numbness and tingling Psychiatric History: Reports: Other (See Below) Other Psychiatric History: sleep disturbance Endocrine/Metabolic History: Reports: Hypothyroidism, Obesity/BMI 30+ Hematologic History: Reports: None Immunologic History: Reports: None Oncologic (Cancer) History: Reports: None Dermatologic History: Reports: Other (See Below) Other Dermatologic History: right scalp sebaceous cyst - Past Surgical History Head Surgeries/Procedures: Reports: None HEENT Surgical History: Reports: Adenoidectomy, Tonsillectomy Cardiovascular Surgical History: Reports: None Respiratory Surgical History: Reports: None GI Surgical History: Reports: Bariatric Procedure, Colonoscopy, EGD Female Surgical History: Reports: Tubal Ligation Endocrine Surgical History: Reports: Thyroidectomy Neurological Surgical History: Reports: None Musculoskeletal Surgical History: Reports: None, Knee Replacement Other Musculoskeletal Surgeries/Procedures:: left knee replacement Oncologic Surgical History: Reports: None Social & Family History - Tobacco Use Smoking Status *Q: Never Smoker - Caffeine Use Caffeine Use: Reports: Coffee, Tea - Recreational Drug Use Recreational Drug Use: No ED ROS GENERAL - Review of Systems Review Of Systems: See Below Constitutional: Denies: Fever, Chills HEENT: Reports: No Symptoms Respiratory: Denies: Shortness of Breath, Pleuritic Chest Pain Cardiovascular: Denies: Chest Pain GI/Abdominal: Denies: Abdominal Pain Musculoskeletal: Denies: Shoulder Pain, Arm Pain Skin: Reports: No Symptoms Neurological: Reports: Syncope, Weakness (mild generalized). Denies: Numbness, Tingling ED EXAM, NEURO - Physical Exam Exam: See Below General Appearance: Alert, No Apparent Distress Eye Exam: Bilateral Eye: PERRL Throat/Mouth: Other (oral mucosa mildly dry) Head Exam: Atraumatic Neck: Supple Respiratory/Chest: No Respiratory Distress, Lungs Clear, Normal Breath Sounds Cardiovascular: Regular Rate, Rhythm GI/Abdominal: Soft, Non-Tender. No: Guarding Neurological: Alert, No Motor/Sensory Deficits, Oriented x 3 Back Exam: No: CVA Tenderness (L), CVA Tenderness (R) Extremities: Other (L knee mildly swollen, minimal medial lateral tendernes, not warm or erythematous, tolerates gentle ROM) Skin Exam: Warm, Dry, Normal Color EKG INTERPRETATION EKG Date: 02/06/20 Rhythm: NSR [place]: Normal P-Wave: Present QRS: Normal ST-T: Normal Course - Vital Signs Last Recorded V/S: Last Vital Signs Temp 98.7 F 02/06/20 06:13 Pulse Resp 16 02/06/20 06:13 BP 127/71 02/06/20 06:13 Pulse Ox 97 02/06/20 06:13 - Orders/Labs/Meds Orders: Active Orders 24 hr Category Date Time Status EKG 12 Lead [EKG Documentation Completion] [RC] STAT Care 02/06/20 06:25 Active Peripheral IV Care [RC] . DIRECTED Care 02/06/20 06:30 Active Sodium Chloride 0.9% [Normal Saline] 1,000 ml Med 02/06/20 06:30 Active IV ONETIME Sodium Chloride 0.9% [Saline Flush] Med 02/06/20 06:30 Active 10 ml FLUSH ASDIRECTED PRN Peripheral IV Insertion Adult [OM.PC] Stat Oth 02/06/20 06:30 Ordered Medication Orders Sodium Chloride (Normal Saline) 1,000 mls @ 999 mls/hr IV ONETIME DEANDRE Last Admin: 02/06/20 06:44 Dose: 999 mls/hr Documented by: ALEX Sodium Chloride (Saline Flush) 10 ml FLUSH ASDIRECTED PRN PRN Reason: Keep Vein Open Last Admin: 02/06/20 06:44 Dose: 10 ml Documented by: HOWAELI Labs: Laboratory Tests 02/06/20 02/06/20 Range/Units 06:22 06:22 WBC 8.71 (3.98-10.04) K/mm3 RBC 4.31 (3.98-5.22) M/mm3 Hgb 12.5 (11.2-15.7) gm/dl Hct 39.6 (34.1-44.9) % MCV 91.9 (79.4-94.8) fl MCH 29.0 (25.6-32.2) pg MCHC 31.6 L (32.2-35.5) g/dl RDW Std Deviation 47.0 H (36.4-46.3) fL Plt Count 244 (182-369) K/mm3 MPV 10.0 (9.4-12.3) fl Neut % (Auto) 79.2 H (34.0-71.1) % Lymph % (Auto) 8.5 L (19.3-51.7) % Bowie % (Auto) 10.1 (4.7-12.5) % Eos % (Auto) 1.7 (0.7-5.8) Baso % (Auto) 0.2 (0.1-1.2) % Neut # (Auto) 6.89 H (1.56-6.13) K/mm3 Lymph # (Auto) 0.74 L (1.18-3.74) K/mm3 Bowie # (Auto) 0.88 H (0.24-0.36) K/mm3 Eos # (Auto) 0.15 (0.04-0.36) K/mm3 Baso # (Auto) 0.02 (0.01-0.08) K/mm3 Manual Slide Review Abnormal smear Sodium 139 (136-145) mEq/L Potassium 3.8 (3.5-5.1) mEq/L Chloride 102 (98-107) mEq/L Carbon Dioxide 28 (21-32) mEq/L Anion Gap 12.8 (5-15) BUN 10 (7-18) mg/dL Creatinine 0.9 (0.55-1.02) mg/dL Est Cr Clr Drug Dosing TNP Estimated GFR (MDRD) > 60 (>60) mL/min BUN/Creatinine Ratio 11.1 L (14-18) Glucose 136 H (83-115) mg/dL Calcium 8.5 (8.5-10.1) mg/dL Total Bilirubin 0.5 (0.2-1.0) mg/dL AST 28 (15-37) U/L ALT 35 (14-59) U/L Alkaline Phosphatase 88 (46-116) U/L Total Protein 6.1 L (6.4-8.2) g/dl Albumin 2.9 L (3.4-5.0) g/dl Globulin 3.2 gm/dL Albumin/Globulin Ratio 0.9 L (1-2) Meds: Medications Generic Name Dose Route Start Last Admin Trade Name Freq PRN Reason Stop Dose Admin Sodium Chloride 1,000 mls @ 999 mls/hr 02/06/20 06:30 02/06/20 06:44 Normal Saline IV 999 mls/hr ONETIME DEANDRE Administration Sodium Chloride 10 ml 02/06/20 06:30 02/06/20 06:44 Saline Flush FLUSH 10 ml ASDIRECTED PRN Administration Keep Vein Open - Re-Assessments/Exams Free Text/Narrative Re-Assessment/Exam: 02/06/20 07:33 CBC, CMP look good, EKG nl, BP has been real steady in the 120's. She is going to be careful with her pain meds, feels up to going home. Discharge instr. as documented. Departure - Departure Time of Disposition: 07:34 Disposition: Home, Self-Care 01 Condition: Fair Clinical Impression: Syncope - Discharge Information Referrals: Geoffrey Benavides MD [Primary Care Provider] - Forms: ED Department Discharge Additional Instructions: Rest, drink plenty of water to maintain hydration. Consider cutting your percocet pain pills in fourths. Take 1/4 tab with 500 mg tylenol q 6 to q 8hr for pain and see how that works for you. If you do start feeling weak or dizzy be sure to sit or lie down imediately. Return to ED as needed. Sepsis Event Note (ED) - Evaluation Sepsis Screening Result: No Definite Risk - Focused Exam Vital Signs: Vital Signs Temp Resp BP Pulse Ox 02/06/20 06:13 98.7 F 16 127/71 97 - My Orders Last 24 Hours: My Active Orders 02/06/20 06:25 EKG 12 Lead [EKG Documentation Completion] [RC] STAT 02/06/20 06:30 Peripheral IV Care [RC] . DIRECTED Sodium Chloride 0.9% [Normal Saline] 1,000 ml IV ONETIME Sodium Chloride 0.9% [Saline Flush] 10 ml FLUSH ASDIRECTED PRN Peripheral IV Insertion Adult [OM.PC] Stat - Assessment/Plan Last 24 Hours: My Active Orders 02/06/20 06:25 EKG 12 Lead [EKG Documentation Completion] [RC] STAT 02/06/20 06:30 Peripheral IV Care [RC] . DIRECTED Sodium Chloride 0.9% [Normal Saline] 1,000 ml IV ONETIME Sodium Chloride 0.9% [Saline Flush] 10 ml FLUSH ASDIRECTED PRN Peripheral IV Insertion Adult [OM.PC] Stat
== END 2020-02-06 08:00 | disposition home or self-care (01) ==
LOC: JD.ED 06:10
DX: R55 Syncope and collapse (principal); M79.662 Pain in left lower leg; M79.672 Pain in left foot; K21.9 Gastro-esophageal reflux disease without esophagitis; E03.9 Hypothyroidism, unspecified; E78.00 Pure hypercholesterolemia, unspecified; E66.9 Obesity, unspecified; Z98.51 Tubal ligation status; Z88.0 Allergy status to penicillin; Z88.2 Allergy status to sulfonamides; Z88.1 Allergy status to other antibiotic agents; Z79.899 Other long term (current) drug therapy
CPT/HCPCS: 36415; 80053; 85025; 93005; 96360; 99284; J7030